=== PATIENT | female | born 1955 | race Hispanic/Latino ===

== ENCOUNTER 2021-01-24 18:17 | Emergency (ER) | payer OTHER ==
[~2021-01-24] VITALS: Ht 157.5 cm; Wt 70.8 kg
[2021-01-24] MEDS ORDERED: IBUPROFEN 200 MG TAB PO ONE (18:30)
[2021-01-24] MEDS ORDERED: THERAFLU FLU &1 EAC1 PO (18:34)
[2021-01-24] MEDS ORDERED: IBUPROFEN IB200 MG PO (18:34)
[2021-01-24] MEDS ORDERED: CEFDINIR300 MG PO (18:34)
[2021-01-24] MEDS ORDERED: IBUPROFEN 600 MG TAB ONE (18:57)
[2021-01-24 19:47] VITALS: BP 131/64
== END 2021-01-24 21:35 | disposition home or self-care (01) ==
LOC: FSED 18:25
DX: R50.9 Fever, unspecified (principal); J06.9 Acute upper respiratory infection, unspecified; Z20.822 Contact with and (suspected) exposure to COVID-19; Z71.89 Other specified counseling; E03.9 Hypothyroidism, unspecified
CPT/HCPCS: 71045; 83518; 87400; 99283